=== PATIENT | female | born 1990 | race Caucasian/White ===

== ENCOUNTER 2017-09-25 17:19 | Observation (INO) ==
[2017-09-25 18:17] LABS: Microscopic, Urine URINE MICROSCOPIC (MICROSCOPIC)
[2017-09-25 18:51] LABS: Appearance,Urine CLEAR (Clear); Blood, Urine Negative (Negative); Color,Urine YELLOW (Yellow); Glucose,Urine (UA) Negative (Negative); Ketones,Urine 3+ (Negative); Leukocyte Esterase,Urine TRACE (Negative); Protein,Urine 1+ (Negative); Specific Gravity, Urine >= 1.030 (1.005-1.030)
[2017-09-25 19:07] LABS: Amphetamine/Metha Screen,Urine Negative ng/mL (<1000); Barbiturates Screen,Urine Negative ng/mL (<200); Benzodiazepines Screen,Urine Negative ng/mL (200); Cannabinoid Screen,Urine Negative ng/mL (<50); Cocaine Screen,Urine Negative ng/g (<300); Methadone Screen,Urine Negative ng/mL (<300); Opiate Screen,Urine Negative ng/mL (<300); Phencyclidine Screen,Urine Negative ng/mL (<25)
[2017-09-25 20:07] LABS: Bacteria,Urine 2+ /lpf; WBC,Urine 20-50 #/hpf (0-3)
--- NOTE | 2017-09-25 21:49 | History & Physical Report ---
OB - H&P: HPI Antepartum - History of Present Illness Chief complaint: Contractions History of present illness: She is a 26-year-old 3 para 2 who is 32 weeks gestational age. She began having some contractions this afternoon. She came into labor and delivery. She is recently moved from [facility]. She has had labor in her last and said she took a pill throughout the latter half her to prevent contractions. - History of Present Criteria for establishing EDC:: LMP confirmed by 1st trimester US care: good care Ultrasounds: normal 1st trimester US, normal mid trimester US Obstetrical complications: labor Medical complications: none [facility] History I have reviewed the patient's past medical history: Yes Medical History: Denies:: Diabetes Mellitus Type 1, Diabetes Mellitus Type 2, MRSA Other Surgeries: Yes: Appendectomy, Other (wisdom) - *Social History Alcohol Intake: never Occupational Status: unemployed - Psychiatric History Expresses thoughts of harming self/others: None Suicide Plan Description: No Plan *Family Hx:: No significant family history Para: 2 Review of Systems - Review of Systems Review of systems:: pertinent systems reviewed and negative unless documented below Meds Allergies Allergy/AdvReac Type Severity Reaction Status Date / Time amoxicillin [From Amoxil] Allergy Hives Verified 09/25/17 17:48 cefazolin Allergy Hives Verified 09/25/17 17:48 nitrofurantoin Allergy Hives Verified 09/25/17 17:48 [From Macrobid] OB - H&P: Exam - Physical Exam Vital signs: Temp Pulse Resp BP Pulse Ox 98.7 F 90 18 123/70 98 09/25/17 18:25 09/25/17 18:25 09/25/17 18:25 09/25/17 18:25 09/25/17 18:25 - Constitutional no acute distress - Routine HEENT Exam Head: Present: normocephalic - Routine Neck Exam Present: supple - Routine Abdominal Exam Present: soft - Routine Exam Comments: Her cervix was long and closed. OB - Results - Labs Labs: Urine 09/25/17 Range/Units 17:30 Urine Color Yellow (Yellow) Urine Appearance Clear (Clear) Urine pH 6.0 (5.0-8.5) Ur Specific [place] >= 1.030 (1.005-1.030) Urine Protein 1+ (Negative) Urine Glucose (UA) Negative (Negative) OB - A/P Antepartum (1) labor in third trimester Current visit: Yes Status: Acute - Additional Plan Plan: expectant management Additional Information:: She is having contractions and she has received 1 dose of Brethine as well as IV fluids. She is feeling contractions they are somewhat irregular now. We will go ahead and start nifedipine 10 mg every 6. We have given her 1 dose of steroids and will repeat her dose again in 24 hours.
[2017-09-26 04:45] VITALS: BP 112/58
--- NOTE | 2017-09-26 08:18 | Discharge Summary ---
General - General Admission date:: 09/25/17 Discharge date: 09/26/17 HPI HPI: She is a 26-year-old 3 para 2 who is 32 weeks gestational age. She came in and was observed overnight. She had labor. Initially she received IV fluids as well as Brethine but she continued to have contractions so we decided to admit her and observe her overnight. Hospital Course Hospital Course: She received IV fluids as well as subcutaneous Brethine. She was given a dose of steroids. She will return this evening for a second dose of steroids. Her contractions have settled and her cervix remains unchanged at long and closed. As result of this we are going to be discharging her home. She will return this evening for her second dose of steroids. Objective Vital signs: Temp Pulse Resp BP Pulse Ox 97.9 F 70 18 112/58 98 09/26/17 04:30 09/26/17 04:30 09/26/17 04:30 09/26/17 04:30 09/25/17 18:25 no acute distress Results Labs on day of discharge: Labs from last 24 hours 09/25/17 09/25/17 17:30 17:30 Urine Color Yellow Urine Appearance Clear Urine pH 6.0 Ur Specific [place] >= 1.030 Urine Protein 1+ Urine Glucose (UA) Negative Urine Ketones 3+ Urine Blood Negative Urine Nitrate Negative Urine Bilirubin 1+ A Urine Urobilinogen 1.0 Ur Leukocyte Esterase Trace Urine WBC 20-50 Ur Squamous Epith Cells 5-10 Urine Bacteria 2+ Urine Opiates Screen Negative Ur Barbituates Screen Negative Ur Phencyclidine Scrn Negative Ur Amphetamines Screen Negative U Methamphetamines Scrn Negative U Benzodiazepines Scrn Negative Urine Cocaine Screen Negative U Marijuana (THC) Screen Negative DS: Diagnosis - Discharge Diagnosis (1) labor in third trimester Status: Acute Discharge Plan - Patient Discharge Instructions ACTIVITY: Continue current activity DIET: continue same diet Additional Instructions: Drink plenty of fluids. - Follow up Plan Disposition: Home, Self-Retirement Medications: Home Medications Medication Instructions Recorded Confirmed Type Pnv95/Iron Fum/Folic Acid 1 each PO DAILY 09/26/17 09/26/17 History [ Tablet] Prescriptions/Medication Reconciliation: Continue Pnv95/Iron Fum/Folic Acid [ Tablet] 1 each PO DAILY
[2017-09-27 21:41] LABS: Bilirubin,Urine Negative (Negative)
== END 2017-09-26 08:33 | disposition home or self-care (01) ==
LOC: OB 17:19 → OBOUT 17:19 → OB 17:24
PROVIDERS: ADMIT Nurse Practitioner Obstetrics & Gynecology; ATTEND Nurse Practitioner Obstetrics & Gynecology

== ENCOUNTER 2017-09-26 22:54 | Outpatient (CLI) | payer OTHER, SELFPAY ==
--- NOTE | 2017-09-26 23:09 | PC.NURSE ---
pt received Celestone 12.5mg in righ gluteus. Tolerated well. no adverse reactions noted. BP 135/83 pulse 78 o2 98% temp 98.2 respirations 18. no further questions per patient, reports no contractions at this time and positive movement
== END 2017-09-26 23:12 | disposition home or self-care (01) ==
LOC: OBOUT 22:57 → OB 22:58
PROVIDERS: PCP Nurse Practitioner Obstetrics & Gynecology; Visit Provider Nurse Practitioner Obstetrics & Gynecology
DX: O60.03 Preterm labor without delivery, third trimester (principal); Z3A.32 32 weeks gestation of pregnancy
CPT/HCPCS: 96372

== ENCOUNTER 2017-09-29 23:54 | Outpatient (CLI) | payer OTHER, SELFPAY ==
[2017-09-30] VITALS (7 sets, daily range): BP systolic 112–137; BP diastolic 60–98; PULSE 65–76; RESP 18; TEMP 36.7–36.9; O2SAT 98; BMI 36.5
[2017-09-30 00:18] LABS: Microscopic, Urine URINE MICROSCOPIC (MICROSCOPIC)
[2017-09-30 00:20] LABS: Appearance,Urine CLEAR (Clear); Blood, Urine Negative (Negative); Color,Urine YELLOW (Yellow); Glucose,Urine (UA) Negative (Negative); Ketones,Urine TRACE (Negative); Leukocyte Esterase,Urine TRACE (Negative); Nitrate,Urine Negative (Negative); PH,Urine 6.5 (5.0-8.5); Protein,Urine TRACE (Negative); Specific Gravity, Urine 1.025 (1.005-1.030)
[2017-09-30 00:23] LABS: Bilirubin,Urine Negative (Negative)
[2017-09-30 00:25] LABS: Bacteria,Urine 1+ /lpf; Mucus,Urine 1+ /lpf
[2017-09-30 00:50] LABS: Amphetamine/Metha Screen,Urine Negative ng/mL (<1000); Barbiturates Screen,Urine Negative ng/mL (<200); Benzodiazepines Screen,Urine Negative ng/mL (200); Cannabinoid Screen,Urine Negative ng/mL (<50); Cocaine Screen,Urine Negative ng/g (<300); Methadone Screen,Urine Negative ng/mL (<300); Opiate Screen,Urine Negative ng/mL (<300); Phencyclidine Screen,Urine Negative ng/mL (<25)
== END 2017-09-30 02:50 | disposition home or self-care (01) ==
LOC: OBOUT 23:56 → OB 09-30 00:01
PROVIDERS: PCP Nurse Practitioner Obstetrics & Gynecology; Visit Provider Nurse Practitioner Obstetrics & Gynecology
DX: O60.03 Preterm labor without delivery, third trimester (principal); Z3A.33 33 weeks gestation of pregnancy
CPT/HCPCS: 59025; 80305; 81001; 87086; 96360; 96372

== ENCOUNTER 2017-10-03 14:34 | Outpatient (CLI) | payer OTHER, SELFPAY ==
[2017-10-03 14:45] VITALS: BMI 36.5
[2017-10-03 14:50] VITALS: BP 121/73; PULSE 93; RESP 18; TEMP 36.9; O2SAT 99
[2017-10-03 14:55] VITALS: BMI 36.5
[2017-10-03 15:00] VITALS: BP 121/73; PULSE 93; RESP 18; TEMP 36.9; O2SAT 99; BMI 36.5
[2017-10-03 15:43] LABS: Microscopic, Urine URINE MICROSCOPIC (MICROSCOPIC)
[2017-10-03 15:44] LABS: Appearance,Urine CLEAR (Clear); Bilirubin,Urine Negative (Negative); Blood, Urine Negative (Negative); Color,Urine YELLOW (Yellow); Glucose,Urine (UA) Negative (Negative); Ketones,Urine TRACE (Negative); Leukocyte Esterase,Urine TRACE (Negative); Nitrate,Urine Negative (Negative); Protein,Urine Negative (Negative); Specific Gravity, Urine >= 1.030 (1.005-1.030); Urobilinogen,Urine 0.2 EU/dl (0.2)
[2017-10-03 15:55] LABS: Bacteria,Urine 3+ /lpf; Squamous Epithelial Cell,Urine 20-50 #/hpf (0-5); Trichomonas,Urine 1+ /lpf; WBC,Urine 20-50 #/hpf (0-3)
[2017-10-03 16:06] LABS: Fetal Fibronectin (Rapid) Negative (Negative)
== END 2017-10-03 18:55 | disposition home or self-care (01) ==
LOC: OBOUT 14:36 → OB 14:37
PROVIDERS: PCP Nurse Practitioner Obstetrics & Gynecology; Visit Provider Nurse Practitioner Obstetrics & Gynecology
DX: O26.93 Pregnancy related conditions, unspecified, third trimester (principal); Z3A.33 33 weeks gestation of pregnancy; R10.2 Pelvic and perineal pain
CPT/HCPCS: 59025; 81001; 82731; 87086; 96360; 96361; 96367

== ENCOUNTER → 2017-10-08 13:04 | Outpatient (CLI) | payer OTHER, SELFPAY ==
--- NOTE | 2017-10-08 | US_ITS ---
US OB biophysical profile, US SD Ratio umbilcal artery: Indication: Evaluate growth, two-vessel umbilical cord, failed nonstress test ITS.REASON: US OB BPP GROWTH- Single Umbilical Artery IUGR ORDERING PHYSICIAN: Dawna Wilson MD PATIENT AGE: 26 years There are no previous exams available at this institution for comparison FINDINGS: There is a single live fetus present in cephalic presentation. movement and breathing motion noted. heart tones present at 1 50 bpm. There is a two-vessel cord. SD ratio is 2.7. Resistive index is 0.63 both within normal limits. Biometric measurements of the fetus are not performed. There is posterior grade 1 placenta. Amniotic fluid index: 9 cm Qualitative AFV: 2 breathing movements: 2 Gross body movements: 2 Tone: 2 Biophysical profile score: 8/8 IMPRESSION: Single live fetus in cephalic presentation. The given gestational age is 34 weeks 2 days by last menstrual period. Biometric measurements not obtained. Biophysical profile is 8 of 8. Amniotic fluid volume index is at lower limits of normal at 9 cm. Two-vessel umbilical cord with unremarkable Doppler evaluation
== END ==
PROVIDERS: Visit Provider Obstetrics & Gynecology
DX: O36.5990 Maternal care for other known or suspected poor fetal growth, unspecified trimester, not applicable or unspecified (principal); Q27.0 Congenital absence and hypoplasia of umbilical artery; Z34.90 Encounter for supervision of normal pregnancy, unspecified, unspecified trimester
CPT/HCPCS: 76819; 76820

== ENCOUNTER 2017-10-08 22:47 | Outpatient (CLI) | payer OTHER, SELFPAY ==
[2017-10-08 23:01] VITALS: BMI 36.1
[2017-10-08 23:18] LABS: Microscopic, Urine URINE MICROSCOPIC (MICROSCOPIC)
[2017-10-08 23:25] LABS: Appearance,Urine CLEAR (Clear); Blood, Urine Negative (Negative); Color,Urine YELLOW (Yellow); Glucose,Urine (UA) Negative (Negative); Ketones,Urine 1+ (Negative); Leukocyte Esterase,Urine Negative (Negative); Nitrate,Urine Negative (Negative); Protein,Urine Negative (Negative); Specific Gravity, Urine >= 1.030 (1.005-1.030)
[2017-10-08 23:26] LABS: Bilirubin,Urine Negative (Negative)
[2017-10-08 23:28] LABS: Fetal Membrane Rupture (Rapid) Negative (Negative)
[2017-10-08 23:30] VITALS: BP 115/80; PULSE 85; RESP 18; TEMP 36.7; O2SAT 96
[2017-10-08 23:31] VITALS: BMI 36.1
[2017-10-08 23:31] LABS: Bacteria,Urine 1+ /lpf; Mucus,Urine 1+ /lpf; Squamous Epithelial Cell,Urine Occasional #/hpf (0-5)
[2017-10-08 23:32] LABS: Amphetamine/Metha Screen,Urine Negative ng/mL (<1000); Barbiturates Screen,Urine Negative ng/mL (<200); Benzodiazepines Screen,Urine Negative ng/mL (200); Cannabinoid Screen,Urine Negative ng/mL (<50); Cocaine Screen,Urine Negative ng/g (<300); Methadone Screen,Urine Negative ng/mL (<300); Opiate Screen,Urine Negative ng/mL (<300); Phencyclidine Screen,Urine Negative ng/mL (<25)
[2017-10-09 00:07] LABS: Fetal Fibronectin (Rapid) Negative (Negative)
== END 2017-10-09 06:10 | disposition home or self-care (01) ==
LOC: OBOUT 22:50 → OB 22:52
PROVIDERS: PCP Obstetrics & Gynecology; Visit Provider Obstetrics & Gynecology
DX: O26.893 Other specified pregnancy related conditions, third trimester (principal); Z3A.34 34 weeks gestation of pregnancy
CPT/HCPCS: 59025; 80305; 81001; 82731; 84112; 96360; 96367; 96372

== ENCOUNTER → 2017-10-11 13:05 | Outpatient (CLI) | payer OTHER, SELFPAY ==
--- NOTE | 2017-10-11 | US_ITS ---
US OB biophysical profile, US OB follow up, US SD Ratio umbilcal artery: INDICATION: ITS.REASON: US OB BPP Growth- Single Umbilical Artery IUGR ORDERING PHYSICIAN: Dawna Wilson MD PATIENT AGE: 26 years TECHNIQUE: ultrasound transabdominal scanning. COMPARISON: 10/08/2017 FINDINGS: Single viable intrauterine gestation. Variable position. Initially cephalic but apparently rotated later on during the exam. Generous Placenta: Posterior with lateral wrap. Placenta grade 1. There is average amount fluid. ======== The cervix appears satisfactory. Closed and measuring 3 cm in length. Limited survey performed, centered three-vessel cord on was unremarkable on the submitted images as in PACS. No discrete anomalies identified on survey imaging by technologist.Active fetus. A 2 cord was observed with satisfactory cord insertion. Apparently this 2 vessel cord initially noted at [place] or [facility] facility. Limited Survey of brain & ventricles. In posterior fossa unremarkable Diaphragm and chest views unremarkable. 4- chamber heart imaged. Cine loop included. Abdomen: Both kidneys noted and unremarkable. Stomach noted and satisfactory. Spine: Today's limited Survey of spine satisfactory with no anomalies identified. Both arms and legs noted. Measurements: Average ultrasound age 33 weeks 5 day. Gestational Age 34 weeks 5 day. Estimated due date by ultrasound age 711/24/2017. Estimated weight 2218 grams. +/- 324 g BPD = 33 weeks 5 day OFD = 33 weeks 2 day HC = 33 week 1 day AC = 33 week 1 day FL = 34 week 4 day Heart Rate = 140 BPM PAIGE. = 7.95 relatively low. The largest pocket measuring 2.76 cm at right lower quadrant HC/AC = 1.03.(1.09-1.26.) CI = 79%.(70-86%). FL/BPD is 80%.: (71-87% FL/AC is 23% BIOPHYSICAL PROFILE movement, adequate tone and and breathing motion observed: 8 of possible 8 points Scoring as follows: +2 for breathing. +2 for tone. +2 movement. +2 fluid volume(adequate pocket identified although overall PAIGE relatively low) SD RATIO = 2.3 Resistive index equals 0.56 -========IMPRESSION: Single viable gestation Variable position. Cephalic initially but subsequent rotated Posterior placenta with wrap no previous 33 weeks 5 days average ultrasound age. Two-vessel umbilical cord again observed,. Otherwise limited anatomical survey unremarkable today Relatively low PAIGE = 7.95. With Largest pocket 2.76 cm RUQ Biophysical profile = 8 of possible 8 points SD ratio = 2.3
== END ==
PROVIDERS: PCP Obstetrics & Gynecology; Visit Provider Obstetrics & Gynecology
DX: O36.5990 Maternal care for other known or suspected poor fetal growth, unspecified trimester, not applicable or unspecified (principal); Q27.0 Congenital absence and hypoplasia of umbilical artery
CPT/HCPCS: 76816; 76819; 76820

== ENCOUNTER → 2017-10-17 18:41 | Outpatient (REF) | payer OTHER, SELFPAY | LOC: LAB 18:41 | PROVIDERS: Visit Provider Nurse Practitioner Obstetrics & Gynecology | DX: Z34.90 Encounter for supervision of normal pregnancy, unspecified, unspecified trimester (principal) | CPT/HCPCS: 86403 ==

== ENCOUNTER → 2017-10-24 09:36 | Outpatient (CLI) | payer OTHER, SELFPAY ==
--- NOTE | 2017-10-24 | US_ITS ---
US OB biophysical profile, US OB follow up, US SD Ratio umbilical artery: Indication: ITS.REASON: US OB BPP- Single Umbilical Artery ORDERING PHYSICIAN: Dawna Wilson MD PATIENT AGE: 27 years FINDINGS: Single live fetus is present in cephalic presentation. Placenta is posterior grade 1 The following parameters are obtained: Average ultrasound age is 35 weeks 6 days. Estimated due date by ultrasound is 11/22/2017. Estimated weight is 2737 g. This is 30th percentile based on estimated due date BPD: 35 weeks 4 days OFD: OFD HC: 36 weeks 6 days AC: 36 weeks 3 days FL: 34 weeks 1 day heart rate: 152 bpm. HC/AC: 1.00 Cephalic index: 75% FL/BPD: 75% FL/AC: 20% Amniotic fluid index: 9 cm Qualitative AFV: 2 breathing movements: 2 Gross body movements: 2 Tone: 2 Biophysical profile score: 8/8 Doppler evaluation of the umbilical artery: There is a single umbilical artery. SD ratio: 2.4 Resistive index: 0.58 No obvious anomalies evident. Placenta: Posterior and grade 1. No previa Cervix: Appears closed and measures 4 cm IMPRESSION: Single live fetus in the cephalic presentation. Average ultrasound age 35 weeks 6 days. Adequate progression. Single umbilical artery. No obvious anomalies. Biophysical profile 8 of 8. Amniotic fluid volume lower limits of normal at 9 cm Unremarkable umbilical artery Doppler
== END ==
PROVIDERS: PCP Obstetrics & Gynecology; Visit Provider Obstetrics & Gynecology
DX: Q27.0 Congenital absence and hypoplasia of umbilical artery (principal); Z34.90 Encounter for supervision of normal pregnancy, unspecified, unspecified trimester
CPT/HCPCS: 76816; 76819; 76820

== ENCOUNTER → 2017-11-05 13:02 | Outpatient (CLI) | payer OTHER, SELFPAY ==
--- NOTE | 2017-11-05 | US_ITS ---
US OB biophysical profile, With an old mallet the's US SD Ratio umbilcal artery: Indication: Single umbilical artery, borderline low PAIGE ITS.REASON: US BPP- Single Umbilical Artery ORDERING PHYSICIAN: Dawna Wilson MD PATIENT AGE: 27 years COMPARISON: 10/24/2018 FINDINGS: There is a single live fetus present in the cephalic presentation. heart rate: 142 bpm. Amniotic fluid index: 10.15 cm Qualitative AFV: 2 breathing movements: 2 Gross body movements: 2 Tone: 2 Biophysical profile score: 8/8 Doppler evaluation of the umbilical artery: SD ratio: 2.3 Resistive index: 0.57 The placenta is posterior and grade 1. breathing and movement noted. There is a single umbilical artery. IMPRESSION: Single live fetus in cephalic presentation. Measurements not performed on today's exam. heart and body motion noted. Normal PAIGE of 10 cm with biophysical profile 8 of 8 and unremarkable Doppler evaluation of the umbilical artery
== END ==
PROVIDERS: PCP Obstetrics & Gynecology; Visit Provider Obstetrics & Gynecology
DX: O09.899 Supervision of other high risk pregnancies, unspecified trimester (principal)
CPT/HCPCS: 76819; 76820

== ENCOUNTER 2017-11-11 06:34 | Inpatient (IN) ==
[2017-11-11 07:43] LABS: Basophils % 0.1 % (0.1-2.0); Eosinophils # 0.2 K/mm3 (0.0-0.4); Eosinophils % 1.3 % (0.1-12.0); Hematocrit 36.8 % (37.0-47.0); Lymphocytes # 2.5 K/mm3 (0.7-4.5); Lymphocytes % 21.7 K/mm3 (10-50); Mean Corpuscular HGB Conc 32.6 g/dL (31.8-35.4); Mean Corpuscular Volume 79.7 fl (81-99); Mean Platelet Volume 9.1 fl (7.4-10.4); Monocytes # 0.5 K/mm3 (0.1-1.0); Monocytes % 4.5 % (1.7-9.3); Neutrophils # 8.4 K/mm3 (1.8-7.8); Neutrophils % 72.4 % (37.0-80.0); Platelet Count 248 K/mm3 (142-424); Red Blood Count 4.62 M/mm3 (4.20-5.40); Red Cell Distribution Width 15.1 % (11.5-17.5); White Blood Count 11.5 K/mm3 (4.8-10.8)
[2017-11-11 08:02] LABS: Amphetamine/Metha Screen,Urine Negative ng/mL (<1000); Barbiturates Screen,Urine Negative ng/mL (<200); Benzodiazepines Screen,Urine Negative ng/mL (200); Cannabinoid Screen,Urine Negative ng/mL (<50); Cocaine Screen,Urine Negative ng/g (<300); Methadone Screen,Urine Negative ng/mL (<300); Opiate Screen,Urine Negative ng/mL (<300); Phencyclidine Screen,Urine Negative ng/mL (<25)
--- NOTE | 2017-11-11 14:47 | Progress Note ---
[facility] Anesthesia Checklist - Patient Identification Patient Identification: Arm Band, Verbal (Name & ) - Structural Data Admitted From: Home Planned Operative Procedure/s: Labor Epidural Consent for Planned Operative Procedure(s) Verified: Yes Verified Documents: Surgical Consent, History and Physical - Additional verifications Patient : Yes Anesthesia Reactions: No - Airway Assessment C-Spine Mobility Assessed: Yes TMJ Mobility Assessed: Yes Dentition: Good Dentition - Neurological Assessment Level of Consciousness: Awake Hx Seizures: No Numbness or tingling in extremities: No - Anesthesia Plan Anesthesia Risk discussed: Yes Anesthesia Plan: Verified ASA Class: III Anesthesia Type: Epidural [facility] Anesthesia HX I have reviewed the patient's past medical history: Yes Medical History: Denies:: Cancer, Diabetes Mellitus Type 1, Diabetes Mellitus Type 2, MRSA Other Medical History: Reports: Other (Bipolar) Other Surgeries: Yes: Appendectomy, Other. No: Amputation: No Fractures: No *Family Hx:: Cancer, Hypertension, Hyperlipidemia, Diabetes, Anemia, Asthma, Stroke
[2017-11-11 17:49] LABS: Microscopic, Urine URINE MICROSCOPIC (MICROSCOPIC)
[2017-11-11 18:11] LABS: Appearance,Urine CLEAR (Clear); Bilirubin,Urine Negative (Negative); Blood, Urine Negative (Negative); Color,Urine YELLOW (Yellow); Glucose,Urine (UA) Negative (Negative); Ketones,Urine Negative (Negative); Leukocyte Esterase,Urine Negative (Negative); Protein,Urine Negative (Negative); Urobilinogen,Urine 0.2 EU/dl (0.2)
[2017-11-11 18:56] LABS: Bacteria,Urine Trace /lpf; WBC,Urine Occasional #/hpf (0-3)
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
--- NOTE | 2017-11-12 00:35 | Procedure Note ---
- Delivery Note Delivery Date:: 11/12/17 Delivery Time:: 00:30 Anesthesia Type: Epidural Was labor medically induced?: Yes Induction method: per pitocin protocol Gestational age (weeks): 39 delivered prior to 39 weeks?: No Gender: Male at 1 minute: 8 at 5 minutes: 9 Delivery Procedure:: Rapid progression from 5cm to complete. Pushed x2 for spontaneous vaginal delivery of vigorous liveborn male infant, over intact perineum. Nuchal cord x 1 reduced on perineum and placed on maternal abdomen after umbiical cord was cut. Placenta delivered spontaneously and noted to be intact. Infant immediately given to nursing staff for assessment; apgars 8 & 9. Left periurethral laceration noted but hemostatic and no repair. No perineal, vaginal or cervical lacerations. EBL: 300cc. Complications: none. Disposition: mom & baby stable to recovery. Placenta sent for pathology. Laceration:: labial (left periurethral; no repair) Placental Delivery Description: Spontaneous, Normal Configuration (2 vessel cord (SUA))
[2017-11-12 06:04] LABS: Hematocrit 33.5 % (37.0-47.0)
[2017-11-12 06:23] LABS: Hemoglobin 10.7 g/dL (12.2-16.2)
[2017-11-12 10:08] VITALS: BP 114/57
--- NOTE | 2017-11-13 13:09 | Discharge Summary ---
DS: Providers Date of admission: 11/11/17 06:34 Admitting clinician: Dawna Razo Consults: 11/11/17 08:30 Care Management Consult [Consult to Case Management] [CONS] Routine Comment: + FOR THC, DURING VISITS Discharging clinician: Dawna Razo Anticipated date of discharge: 11/13/17 DS: Diagnosis - Discharge Diagnosis (1) 39 weeks gestation of Status: Acute (2) Late care affecting in third trimester Status: Acute Problem details: transfer of care 34 weeks (3) Single umbilical artery affecting management of mother, antepartum, single gestation Status: Acute (4) Chronic pre-existing hypertension during Status: Chronic Problem details: no meds during (5) Obesity, Class II, BMI 35-39.9 Status: Chronic (6) Tobacco smoking complicating in third trimester Status: Chronic (7) Anemia complicating in third trimester Status: Acute Problem details: 11.3 (8) Acute blood loss anemia Status: Acute DS: Medications - Discharge Medications Prescriptions: New Ibuprofen [Motrin 400mg tablet] 800 mg PO Q6HP PRN #30 tab PRN Reason: Mild To Moderate Pain Continue Loratadine [Claritin] 10 mg PO DAILYP PRN PRN Reason: ALLERGY SYMPTOMS Pnv95/Iron Fum/Folic Acid [ Tablet] 2 each PO DAILY Ferrous Sulfate [Iron] 325 mg PO DAILY OB - DS: Summary Hospital course: Ms. Jefferson is a 27 year old female Time spent discussing smoking cessation with patient: 3 to 10 minutes - Peripartum Data Delivery method: spontaneous vaginal delivery Laceration description: Periurethral - 1st Degree Episiotomy description: None complications: none (acute blood loss anemia within expected limits after vaginal delivery) - Status at Discharge Functional status at discharge: independent ambulation Overall status at discharge: patient is progressing back to baseline - Time Spent with Patient Total time spent providing and/or coordinating discharge services: Less than 30 minutes Specific discharge activities: pelvic rest until after visit Exam Vital signs and Labs for Last 24 Hours: Temp Pulse Resp BP Pulse Ox 97.8 F 64 18 114/57 99 11/12/17 08:00 11/12/17 08:00 11/12/17 08:00 11/12/17 08:00 11/12/17 08:00 I & O for Last 24 hours: Intake & Output 11/11/17 11/12/17 11/13/17 11/14/17 11:59 11:59 11:59 11:59 Weight 242 lb - Constitutional no acute distress, cooperative - *Routine Respiratory Exam Absent: accessory muscle use, respiratory distress - *Routine Cardiovascular Exam Absent: tachycardia - *Routine Abdominal Exam Present: soft. Absent: tenderness, distended - *Routine Extremities Exam Present: edema (1+) - *Routine Skin Exam Present: intact, dry - *Routine Neurological Exam Present: alert, oriented X3, normal speech. Absent: altered mental status Discharge Plan - Patient Discharge Instructions ACTIVITY: No heavy lifting DIET: regular diet Additional Instructions: NO DRIVING FOR 2 WEEKS NOTHING IN VAGINA FOR 6 WEEKS NO HEAVY LIFTING FOLLOW-UP WITH DR. RAZO IN 2 WEEKS 11/25/2017 3:15 Patient Instructions: [facility] Post Discharge Instructions - Follow up Plan Disposition: Home, Self-Detention Medications: Home Medications Medication Instructions Recorded Confirmed Type Pnv95/Iron Fum/Folic Acid 2 each PO DAILY 09/26/17 11/11/17 History [ Tablet] Ferrous Sulfate [Iron] 325 mg PO DAILY 11/11/17 11/11/17 History Loratadine [Claritin] 10 mg PO DAILYP PRN 11/11/17 11/11/17 History Prescriptions/Medication Reconciliation: No Action Loratadine [Claritin] 10 mg PO DAILYP PRN PRN Reason: ALLERGY SYMPTOMS Pnv95/Iron Fum/Folic Acid [ Tablet] 2 each PO DAILY Ferrous Sulfate [Iron] 325 mg PO DAILY
== END 2017-11-13 13:00 | disposition home or self-care (01) ==
LOC: OB 06:34
PROVIDERS: ADMIT Nurse Practitioner Obstetrics & Gynecology; ATTEND Obstetrics & Gynecology

== ENCOUNTER → 2018-01-03 14:17 | Outpatient (REF) | payer OTHER, SELFPAY ==
[2018-01-07 08:31] LABS: Neisseria gonorrhoeae, NAA Negative (Negative)
== END ==
LOC: LAB 14:17
PROVIDERS: Obstetrics & Gynecology; Visit Provider Nurse Practitioner Obstetrics & Gynecology
DX: Z72.51 High risk heterosexual behavior (principal)
CPT/HCPCS: 87491; 87591